=== PATIENT | male | born 1975 | race Caucasian/White ===

== ENCOUNTER 2025-09-05 20:15 | Emergency (ER) | payer BC ==
[2025-09-05 20:30] VITALS: RESP 20; TEMP 98.3; O2SAT 96
[2025-09-05] MEDS: Hydromorphone 1 mg/ml Injection IM ONE (20:39)
[2025-09-05] MEDS ORDERED: Hydromorphone 1 mg/ml Injection ONE (20:39)
--- NOTE | 2025-09-05 20:39 | ERPHSYRPT ---
- History of Present Illness Patient Subjective Stated Complaint: pt states that he was picking up sticks and slipped and fell on his rt shoulder Triage Nursing Assessment: pt ambulated into the er; pt is axo x4; c/o rt shoulder injury; pt states 8/10 pain to rt shoulder; decreased ROM to rt shoulder; tenderness present to rt shoulder; strong rt radial pulse; skin PDW; no respiratory distress present; hypertensive Physician History: Right shoulder injury, patient was outside picking up sticks lost his balance and fell directly onto his right shoulder, he is unable to move his right shoulder, No previous injuries to that shoulder Occurred: just prior to arrival Method of Injury: fell Quality: constant Severity of Pain-Max: severe Severity of Pain-Current: severe Extremities Pain Location: shoulder: right Allergies/Adverse Reactions: No Known Drug Allergies Allergy (Unverified 09/05/25 20:21) Hx Tetanus, Diphtheria Vaccination/Date Given: Yes Hx Influenza Vaccination/Date Given: No Hx Pneumococcal Vaccination/Date Given: No Travel Risk - International Travel Have you traveled outside of the country in past 3 weeks: No - Emerging Infectious Disease Are you exhibiting symptoms associated with any current EIDs: No - Past Medical History Pertinent Past Medical History: Yes Neurological History: No Pertinent History ENT History: No Pertinent History Cardiac History: Hypertension, Myocardial Infarction ([place]) Respiratory History: No Pertinent History Endocrine Medical History: No Pertinent History Musculoskeletal History: No Pertinent History GI Medical History: No Pertinent History History: No Pertinent History Psycho-Social History: No Pertinent History Male Reproductive Disorders: No Pertinent History - Past Surgical History Past Surgical History: Yes Neuro Surgical History: No Pertinent History Cardiac: Cardiac Catheterization, Cardiac Stent Respiratory: No Pertinent History Gastrointestinal: No Pertinent History Genitourinary: No Pertinent History Musculoskeletal: Orthopedic Surgery Male Surgical History: No Pertinent History Other Surgical History: 20 knee surgery, aco in bentley knee, bentley knee replacement, ostomy - Social History Smoking Status: Never smoker Exposure to second hand smoke: Yes Drug Use: marijuana - Social Determinants of Health Will the patient participate in the screening: Yes Do you worry about a steady place to live?: No Do you have any problems with any of the following?: No known problems In the past 12 months,have you had to go without utilities?: No Transportation Issues: No Has anyone in your support network made you feel unsafe?: No Have you or anyone in your house had to go w/o enough food: No - Nursing Vital Signs Nursing Vital Signs: Initial Vital Signs Pulse Rate 79 09/05/25 20:20 Respiratory Rate 20 09/05/25 20:20 Blood Pressure 181/92 09/05/25 20:20 O2 Sat by Pulse Oximetry 96 09/05/25 20:20 Pain Scale Pain Intensity 8 - Physical Exam General Appearance: no apparent distress, alert Shoulder Exam: limited ROM (Due to pain), pain, soft tissue tenderness, swelling Mental Status Exam: alert, oriented x 3, cooperative Skin Exam: normal color, warm, dry SpO2 Interpretation: normal SpO2: 96 Ordered Tests: Active Orders 24 hr Category Date Time Status Immobilizer STAT Care 09/05/25 21:03 Active SHOULDER Stat Exams 09/05/25 20:34 Taken Medication Summary Discontinued Medications Generic Name Dose Route Start Last Admin Trade Name Freq PRN Reason Stop Dose Admin Hydromorphone HCl 1 mg 09/05/25 20:36 09/05/25 20:39 Hydromorphone 1 Mg/1ml Inj IM 09/05/25 20:37 1 mg STAT ONE Administration Hydromorphone HCl Confirm 09/05/25 20:39 Hydromorphone 1 Mg/1ml Inj Administered 09/05/25 20:40 Dose 1 mg .ROUTE .[employer]-MED ONE - Progress Progress Note: 09/05/25 21:04 X-ray of the right shoulder revealed no acute fractures interpreted by me, he is placed in a shoulder immobilizer, follow-up to orthopedics next week - Departure Departure Disposition: Home Clinical Impression: Right shoulder strain Qualifiers: Encounter type: initial encounter Qualified Code(s): S46.911A - Strain of unspecified muscle, fascia and tendon at shoulder and upper arm level, right arm, initial encounter Condition: Stable Critical Care Time: No Referrals: MAC PERALTA MD [ACTIVE STAFF, ORTHOPEDICS] - Follow Up with PCP/3 days Instructions: Rotator cuff injury Additional Instructions: Ice 10 to 15 minutes 3-4 times a day, shoulder immobilizer, you may follow-up in the orthopedic walk-in clinic on Monday or You may call the office on Monday morning Prescriptions: Hydrocodone/Acetaminophen [Hydrocodone-Acetamin 5-325 mg] 1 each PO Q6H #12 tablet MDD 6
[2025-09-05 21:55] VITALS: BP 174/118; PULSE 80
--- NOTE | 2025-09-06 07:46 | XRAY ---
Indication: Trauma. Comparison: None 3 view right shoulder demonstrates osteopenia and moderate AC degenerative arthropathy. Query nondisplaced fracture midbody scapula on scapular Y-view. No other abnormalities. Comment: Telephone report was given to Dr. Rasmussen at 07:40 hours on September 06, 2025.
== END 2025-09-05 21:55 | disposition home or self-care (01) ==
LOC: ED 20:15
DX: S46.911A Strain of unspecified muscle, fascia and tendon at shoulder and upper arm level, right arm, initial encounter (principal); W18.30XA Fall on same level, unspecified, initial encounter; I10 Essential (primary) hypertension; Z79.899 Other long term (current) drug therapy

== ENCOUNTER 2025-09-24 06:07 | Day surgery (SDC) | payer BC ==
[2025-09-24] MEDS: Lactated Ringers 1,000 ML IV SCH (06:21)
[2025-09-24 06:40] LABS: BASOPHIL % 0.5 % (0.2-1.2); Basophil (Absolute #) 0.08 x10^3/uL (0.01-0.08); Eosinophil (Absolute #) 0.76 x10^3/uL (0.04-0.54); Hematocrit 45.4 % (40.1-51.0); Hemoglobin 15.2 g/dL (13.7-17.5); IMMATURE GRAN # 0.07 x10^3u/L (0.001-0.031); IMMATURE GRAN % 0.4 % (0.001-0.429); Lymphocyte (Absolute #) 2.42 x10^3/uL (1.32-3.57); Mean Corpuscular Hemoglobin 29.3 pg (25.7-32.2); Mean Corpuscular Hgb Concent. 33.5 g/dL (32.3-36.5); Monocyte (Absolute #) 0.96 x10^3/uL (0.30-0.82); NUCLEATED RBC # 0.00 x10^3u/L (0.00-0.012); NUCLEATED RBC % 0.0 % (0.00-0.2); Platelet Count 181 x10^3/uL (163-337); Red Blood Count 5.19 x10^6/uL (4.63-6.08); White Blood Count 16.0 x10^3/uL (4.23-9.07)
[2025-09-24] MEDS: KEFZOL 1 GM** 3 G in Sodium Chloride 0.9% 50 ML 50 ML IV ONE (06:44)
[2025-09-24 07:09] LABS: Calcium 9.2 mg/dL (8.4-10.2); Carbon Dioxide 22.0 mmol/L (22-30); Creatinine 1 0.98 mg/dL (0.66-1.25); EST GLOMERULAR FILTRATION RATE 92.8 ML/MIN; Glucose 164.0 mg/dL (74-106); Potassium 3.8 mmol/L (3.5-5.1); SGOT/AST 36.0 U/L (17-59); SGPT/ALT 34.0 U/L (0-50); Total Protein 7.7 g/dL (6.3-8.2)
[2025-09-24] MEDS ORDERED: Marcaine Mpf 0.5% Vial 30 Ml ONE (07:38)
[2025-09-24] MEDS ORDERED: EXPAREL 133 MG/10 ML VIAL IJ ONE (07:38)
[2025-09-24] MEDS ORDERED: Epinephrine Preservative Free 1 MG/ML ONE ×2 (07:39→09:57)
[2025-09-24] MEDS ORDERED: Xylocaine-Mpf 2% 5 Ml Vial ONE (07:41)
[2025-09-24] MEDS ORDERED: BRIDION 200MG/2ML IV ONE (07:41)
[2025-09-24] MEDS ORDERED: Zofran 4 MG/2 ML VIAL ONE ×2 (07:41→11:29)
[2025-09-24] MEDS ORDERED: TORAdol 30 mg Injection ONE (07:41)
[2025-09-24] MEDS ORDERED: SUBLIMAZE 100 MCG/2 ML ONE (07:41)
[2025-09-24] MEDS ORDERED: propofoL IV ONE ×3 (07:41→11:38)
[2025-09-24] MEDS ORDERED: ROCURONIUM BROMIDE IV ONE ×2 (07:41→09:14)
[2025-09-24] MEDS ORDERED: Ephedrine Sulfate 50 MG/ML ONE (08:50)
[2025-09-24] MEDS ORDERED: KEFZOL 1 GM ONE (09:05)
[2025-09-24] MEDS ORDERED: PHENYLEPHRINE HCL ONE (09:44)
[2025-09-24] MEDS ORDERED: DEXMEDETOMIDINE 80 MCG/20ML-NS IV ONE (10:16)
[2025-09-24] MEDS ORDERED: Compazine 10 MG/2 ML ONE (11:36)
[2025-09-24] MEDS ORDERED: Lactated Ringers 1,000 ML IV ONE (11:37)
[2025-09-24] MEDS ORDERED: DUONEB 0.5-3 MG/3 ml Neb IH ONE (11:39)
[2025-09-24] MEDS: DUONEB 0.5-3 MG/3 ml Neb IH ONE (11:42)
[2025-09-24 12:30] VITALS: RESP 16
[2025-09-24 12:45] VITALS: BP 113/61; PULSE 73; TEMP 97.6; O2SAT 92
--- NOTE | 2025-09-25 07:42 | OP ---
SURGERY DATE/TIME: 09/24/2025 PREOPERATIVE DIAGNOSIS: Right shoulder rotator cuff tear. POSTOPERATIVE DIAGNOSIS: Right shoulder rotator cuff tear. PROCEDURES: 1) Right shoulder arthroscopy with mini open rotator cuff repair. 2) Arthroscopic subacromial decompression. SURGEON: Alejandro Richardson MD. SHELL SORTER: None. ANESTHESIA: General. COMPLICATIONS: None. ESTIMATED BLOOD LOSS: 20 mL. INDICATIONS: The patient is a 50-year-old male who fell onto his right shoulder on 09/05/2025. He presented with pain and weakness in his shoulder. An MRI was obtained, which revealed a full-thickness supraspinatus tear with 2 to 3 cm retraction. We discussed options. He wanted to proceed with a right shoulder arthroscopy with rotator cuff repair, subacromial decompression, and procedures as indicated. I explained risks associated with the procedure, including but not limited to infection, pain, bleeding, damage to surrounding structures, stiffness, failure of the repair, and need for further procedures. After explaining all risks, benefits, and alternative treatment options, he desired to proceed with surgery. DESCRIPTION OF PROCEDURE AND FINDINGS: The patient was taken to the operating room and placed in the supine position. IV antibiotics were administered, and general anesthesia was administered as well. He was then placed in the beach chair position. Right shoulder and upper extremity were then prepped and draped in standard sterile fashion. A standard posterior portal was then created and the arthroscope was inserted into the shoulder joint. An anterior portal was created as well. There was noted to be degenerative fraying of the anterior labrum, and this was debrided with the mechanical shaver. The biceps anchor was intact. The biceps tendon revealed minimal degenerative changes near the insertion. The articular cartilage was healthy in appearance. There was an obvious full-thickness retracted rotator cuff tear, which was evident immediately. The arthroscope was then inserted into the subacromial space. A lateral portal was created, and the coblation wand was inserted through the lateral portal. The periosteum and bursal tissue were removed from the undersurface of the acromion. There was a slight anterior hook to the acromion. The rotator cuff tear was then identified and debrided. There was a significant retraction medially. An elevator was used to mobilize the tear laterally. The greater tuberosity was then decorticated somewhat with the bur. The bur was then used to perform an acromioplasty, creating a type 1 acromion. The lateral portal was then extended proximally to about the level of the acromion. Dissection was carried down and appropriate retractors were placed. The rotator cuff tear was again identified. A 2.9 mm Manny JuggerKnot suture anchor was then inserted into the greater tuberosity. This had 2 sutures attached. The scorpion was used to place mattress stitches through the rotator cuff. These were then tied down nicely to the bone. An excellent repair was obtained. Following this, a tapestry sheet was placed over the repair to aid in healing of the repair. This was a biointegrative implant. This was tacked down using biocomposite leon. The wound was irrigated with normal saline. The deltoid was approximated with 3-0 Vicryl sutures in a [id number] fashion. The subcutaneous tissue was closed with 3-0 Vicryl sutures and the skin for all incisions were closed with 4-0 nylon sutures. A sterile dressing was then applied, and he was placed into his UltraSling. Estimated blood loss was 20 mL, and there were no complications. The patient was then awakened from anesthesia and taken to the recovery room in stable condition.
== END 2025-09-24 12:57 | disposition home or self-care (01) ==
LOC: SDC 06:07
PROVIDERS: ATTEND Orthopaedic Surgery
DX: S46.011A Strain of muscle(s) and tendon(s) of the rotator cuff of right shoulder, initial encounter (principal)